=== PATIENT | female | born 1995 | race African-American/Black ===

== ENCOUNTER 2017-01-13 07:48 | Inpatient (IN) | payer OTHER ==
[~2017-01-13] VITALS: Ht 157.5 cm; Wt 74.4 kg
[2017-01-13] MEDS ORDERED: AMPICILLIN 2 GM in IV NORMAL SALINE 100ML 100 ML IV ONE (09:00)
[2017-01-13] MEDS ORDERED: LIDOCAINE 1% PF 30 ML VIAL. INJ PRN (09:00)
[2017-01-13] MEDS ORDERED: OXYTOCIN 30 UNIT/500 ML PREMIX 500 ML IV PRN ×2 (09:00→18:00)
[2017-01-13] MEDS ORDERED: 0.9 % SODIUM CHLORIDE 10 ML DISP.SYRIN. IV PRN ×2 (09:00→18:00)
[2017-01-13] MEDS ORDERED: IBUPROFEN 800 MG TABLET. PO PRN (09:00)
[2017-01-13] MEDS: IV RINGERS,LACTATED 1000ML 1,000 ML IV SCH ×2 (09:37→14:23)
[2017-01-13 10:12] LABS: BASO % 0 % (0-3); EOS % 0 % (0-3); HEMATOCRIT 31.1 % (36.0-47.0); HEMOGLOBIN 10.2 g/dL (12.0-15.5); LYMPH # 2.3 x10^3/uL (1.0-4.8); LYMPH % 14 % (24-48); MEAN CORPUSCULAR HEMOGLOBIN 27 pg (25-35); MEAN CORPUSCULAR HGB CONC 33 g/dL (31-37); MEAN CORPUSCULAR VOLUME 83 fL (79-100); MONO % 6 % (0-9); NEUT % 81 % (31-73); PLATELET COUNT 280 x10^3/uL (140-400); RED BLOOD COUNT 3.77 x10^6/uL (3.50-5.40); RED CELL DISTRIBUTION WIDTH 14.5 % (11.5-14.5); WHITE BLOOD COUNT 16.8 x10^3/uL (4.0-11.0)
[2017-01-13] MEDS: FENTANYL PF 100 MCG/2 ML VIAL. IV PRN ×2 (10:57→12:43)
[2017-01-13 11:44] LABS: PLT ESTIMATE ADEQUATE (ADEQUATE)
[2017-01-13] MEDS ORDERED: AMPICILLIN 1 GM in IV NORMAL SALINE 50ML 50 ML IV SCH (13:00)
--- NOTE | 2017-01-13 13:47 | PDOC1 ---
OB - History Hx of Present Care: Good Care Ultrasounds: Normal mid trimester US Obstetrical Complications: None Medical Complications: None Past Family/Social History * Past Medical, Surgical, Family and Obstetric Histories reviewed from chart. Blood Type: B+ Rubella: Immune RPR/VDRL: Negative GBS Status: Positive HBsAG: Negative OB - Chief Complaint & HPI Date of Admission: Date of Admission: Jan 13, 2017 at 07:48 Chief Complaint/History : 2 Para: 1 EDC: Jan 14, 2017 Reason for admission: active labor Admission Nurse Assessment Rev: Yes Problems: OB - Admission Exam Physical Exam Vitals: VS - Last 72 Hours, by Label Date Time Temp Pulse Resp B/P Pulse Ox O2 Delivery O2 Flow Rate FiO2 01/13/17 12:43 22 01/13/17 11:32 20 Room Air 01/13/17 10:57 20 Room Air HEENT: Normal, Nasal Mucosa Normal, Oropharynx Normal, Moist Membranes, Fontanelles Normal Lungs: Clear, Equal Abdomen: Gravid Extremities: Normal Pulses, No tenderness or swelling Reflexes: Normal Cervical Dilatation: 7cm Effacement: 100% Station: -2 Membranes: Intact Amniotic Fluid: Clear Heart Rate: Normal Accelerations: Accelerations Present Short Term Variability: Present Contractions on Admission: < 5 Minutes Apart Intensity: Moderate (Term labor, AROM - clear fluid) BRANDIN KLEIN MD Jan 13, 2017 13:47
[2017-01-13] MEDS ORDERED: LIDOCAINE 2% PF Vial for OR 5 ML VIAL. ONE (14:25)
[2017-01-13] MEDS ORDERED: L&D EPIDURAL CASSETTE 100 ML EP ONE (15:17)
--- NOTE | 2017-01-13 17:47 | PDOC ---
VAGINAL DELIVERY DATE DATE: 01/13/17 TIME: 17:45 : 2 Para: 2 EGA: 39 VAGINAL DELIVERY: VTX VACCUM ASSISTED: No PLACENTA: Spontaneous 8/9 SEX: Female WEIGHT Weight [ 3725 gm] Nuchal Cord: No Amniotic Fluid: Clear PAIN: Epidural EPISIOTOMY: No EXTENSION: No EBL 300 ml COMPLICATIONS none CONDITION pt. stable Signs of Intrauterine Infectio: None Shoulder Dystocia: No Problems: HUY ELLIS Jr, MD Jan 13, 2017 17:47
[2017-01-13] MEDS ORDERED: SIMETHICONE 80 MG TAB.CHEW PO PRN (18:00)
[2017-01-13] MEDS ORDERED: MAGNESIUM HYDROXIDE 2,400 MG/30 ML ORAL.SUSP. PO PRN (18:00)
[2017-01-13] MEDS ORDERED: DOCUSATE SODIUM 100 MG CAPSULE PO PRN (18:00)
[2017-01-13] MEDS ORDERED: MMR per PROTOCOL. MC PRN (18:00)
[2017-01-13] MEDS ORDERED: DIPHENHYDRAMINE HCL 25 MG CAPSULE PO PRN (18:00)
[2017-01-13] MEDS ORDERED: OXYCODONE/APAP 5/325 TABLET. PO PRN (18:00)
[2017-01-13] MEDS ORDERED: ZOLPIDEM 5 MG TABLET. PO PRN (18:00)
[2017-01-13] MEDS ORDERED: MAG HYDROX/ALUMINUM HYDROX/SMC 30 ML ORAL.SUSP PO PRN (18:00)
[2017-01-13] MEDS ORDERED: BENZOCAINE 20% TOPICAL AEROSOL SPRAY 57GM CAN. TP PRN (18:00)
[2017-01-13] MEDS ORDERED: PHENYLEPH/MINERAL OIL/PETROLAT RECTAL OINTMENT 28GM TUBE. RC PRN (18:00)
[2017-01-13] MEDS ORDERED: ACETAMINOPHEN 325 MG TABLET. PO PRN (18:00)
[2017-01-13] MEDS ORDERED: HYDROCORTISONE 1% TOPICAL OINTMENT 30GM TUBE. TP PRN (18:00)
[2017-01-13 20:05] VITALS: BP 114/67
[2017-01-13 21:05] VITALS: BP 118/79
[2017-01-13] MEDS: IBUPROFEN 800 MG TABLET. PO PRN (21:51)
[2017-01-14 01:00] VITALS: BP 113/64
[2017-01-14 05:13] LABS: BASO # 0.1 x10^3/uL (0.0-0.2); BASO % 0 % (0-3); EOS % 0 % (0-3); HEMATOCRIT 27.9 % (36.0-47.0); LYMPH # 3.2 x10^3/uL (1.0-4.8); LYMPH % 14 % (24-48); MEAN CORPUSCULAR HEMOGLOBIN 27 pg (25-35); MEAN CORPUSCULAR HGB CONC 32 g/dL (31-37); MEAN CORPUSCULAR VOLUME 85 fL (79-100); MONO % 8 % (0-9); NEUT % 78 % (31-73); PLATELET COUNT 249 x10^3/uL (140-400); RED CELL DISTRIBUTION WIDTH 14.6 % (11.5-14.5); WHITE BLOOD COUNT 23.3 x10^3/uL (4.0-11.0)
[2017-01-14 05:20] VITALS: BP 95/47
[2017-01-14] MEDS ORDERED: INFLUENZA VAX SCREEN BY RX. MC PRN (08:00)
[2017-01-14] MEDS ORDERED: FLU VACC QUAD 2016-17 (36MOS+)/PF 0.5 ML SYRINGE. VAX IM ONE (08:15)
[2017-01-14] MEDS: IBUPROFEN 800 MG TABLET. PO PRN (09:18)
[2017-01-14] MEDS: FERROUS SULFATE 325 MG TABLET PO SCH ×2 (09:18→18:22)
[2017-01-14 10:58] VITALS: BP 99/63
--- NOTE | 2017-01-14 12:44 | PDOC ---
OB Progress Note Date of Service 01/14/17 Time of Evaluation 1235 Notes Pt. feeling well. Pain controlled. Breast feeding. Lochia minimal. Lab Laboratory Tests Test 01/13/17 09:45 01/14/17 04:45 White Blood Count 16.8x10^3/uL (4.0-11.0) 23.3x10^3/uL (4.0-11.0) Red Blood Count 3.77x10^6/uL (3.50-5.40) 3.30x10^6/uL (3.50-5.40) Hemoglobin 10.2g/dL (12.0-15.5) 9.0g/dL (12.0-15.5) Hematocrit 31.1% (36.0-47.0) 27.9% (36.0-47.0) Mean Corpuscular Volume 83fL (79-100) 85fL (79-100) Mean Corpuscular Hemoglobin 27pg (25-35) 27pg (25-35) Mean Corpuscular Hemoglobin Concent 33g/dL (31-37) 32g/dL (31-37) Red Cell Distribution Width 14.5% (11.5-14.5) 14.6% (11.5-14.5) Platelet Count 280x10^3/uL (140-400) 249x10^3/uL (140-400) Neutrophils (%) (Auto) 81% (31-73) 78% (31-73) Lymphocytes (%) (Auto) 14% (24-48) 14% (24-48) Monocytes (%) (Auto) 6% (0-9) 8% (0-9) Eosinophils (%) (Auto) 0% (0-3) 0% (0-3) Basophils (%) (Auto) 0% (0-3) 0% (0-3) Neutrophils # (Auto) 13.6x10^3uL (1.8-7.7) 18.1x10^3uL (1.8-7.7) Lymphocytes # (Auto) 2.3x10^3/uL (1.0-4.8) 3.2x10^3/uL (1.0-4.8) Monocytes # (Auto) 0.9x10^3/uL (0.0-1.1) 1.9x10^3/uL (0.0-1.1) Eosinophils # (Auto) 0.0x10^3/uL (0.0-0.7) 0.1x10^3/uL (0.0-0.7) Basophils # (Auto) 0.0x10^3/uL (0.0-0.2) 0.1x10^3/uL (0.0-0.2) Segmented Neutrophils % 90% (35-66) Band Neutrophils % 1% (0-9) Lymphocytes % 5% (24-48) Monocytes % 4% (0-10) Platelet Estimate Adequate (ADEQUATE) RPR Titer Additional Testing Non reactive (Non Reactive) Laboratory Tests Test 01/14/17 04:45 White Blood Count 23.3x10^3/uL (4.0-11.0) Red Blood Count 3.30x10^6/uL (3.50-5.40) Hemoglobin 9.0g/dL (12.0-15.5) Hematocrit 27.9% (36.0-47.0) Mean Corpuscular Volume 85fL (79-100) Mean Corpuscular Hemoglobin 27pg (25-35) Mean Corpuscular Hemoglobin Concent 32g/dL (31-37) Red Cell Distribution Width 14.6% (11.5-14.5) Platelet Count 249x10^3/uL (140-400) Neutrophils (%) (Auto) 78% (31-73) Lymphocytes (%) (Auto) 14% (24-48) Monocytes (%) (Auto) 8% (0-9) Eosinophils (%) (Auto) 0% (0-3) Basophils (%) (Auto) 0% (0-3) Neutrophils # (Auto) 18.1x10^3uL (1.8-7.7) Lymphocytes # (Auto) 3.2x10^3/uL (1.0-4.8) Monocytes # (Auto) 1.9x10^3/uL (0.0-1.1) Eosinophils # (Auto) 0.1x10^3/uL (0.0-0.7) Basophils # (Auto) 0.1x10^3/uL (0.0-0.2) Medications Current Medications Sodium Chloride 3 ml 3 ml QSHIFT PRN IV AFTER MEDS AND BLOOD DRAWS; Start 01/13 at 09:00 Lactated Ringer's (Iv Lactated Ringers) 1,000 ml @ 125 mls/hr Q8H IV Last administered on 01/13/17 14:23; Start 01/13/17 at 08:54 Fentanyl Citrate (Fentanyl 2ml Vial) 100 mcg PRN Q1HR PRN IV Severe pain Last administered on 01/13/17 12:43; Start 01/13/17 at 09:00 Lidocaine HCl 30 ml 30 ml 1X PRN PRN INJ SEE COMMENTS; Start 01/13/17 at 09:00 ; Stop 01/15/17 at 08:59 Ampicillin Sodium 2 gm/Sodium Chloride 100 ml @ 200 mls/hr 1X ONCE IV Last administered on 01/13/17 09:37; Start 01/13/17 at 09:00; Stop 01/13/17 at 09:29 ; Status DC Ampicillin Sodium 1 gm/Sodium Chloride 50 ml @ 100 mls/hr Q4H IV Last administered on 01/13/17 13:01; Start 01/13/17 at 13:00 Oxytocin/Sodium Chloride (Oxytocin Premix Infusion) 500 ml @ 0 mls/hr CONT PRN PRN IV Post delivery bleeding Last administered on 01/13/17 12:43; Start at 09:00 Ibuprofen (Motrin) 800 mg PRN Q6HRS PRN PO PAIN; Start 01/13/17 at 09:00 Lidocaine HCl 5 ml 5 ml STK-MED ONCE .ROUTE Last administered on 01/13/17 15: 19; Start 01/13/17 at 14:25; Stop 01/13/17 at 14:26; Status DC Ropivacaine/ Fentanyl/NS (Dowlzbdl-Bllqo-DA 3 Mcg-0.1%) 100 ml @ As Directed STK-MED ONCE EP Last administered on 01/13/17 15:31; Start 01/13/17 at 15:17; Stop 01/13/17 at 15:18; Status DC Sodium Chloride 10 ml 10 ml QSHIFT PRN IV AFTER MEDS AND BLOOD DRAWS; Start at 18:00 Oxytocin/Sodium Chloride (Oxytocin Premix Infusion) 500 ml @ 62.5 mls/hr CONT PRN IV SEE I/O RECORD; Start 01/13/17 at 18:00; Stop 01/14/17 at 01:59; Status DC Acetaminophen (Tylenol) 650 mg PRN Q6HRS PRN PO MILD PAIN / TEMP; Start at 18:00 Ibuprofen (Motrin) 800 mg PRN Q8HRS PRN PO INFLAMMATION/PAIN PREVENTION Last administered on 01/14/17 09:18; Start 01/13/17 at 18:00 Docusate Sodium (Colace) 100 mg PRN BID PRN PO CONSTIPATION; Start 01/13/17 at 18:00 Magnesium Hydroxide (Milk Of Magnesia) 2,400 mg PRN DAILY PRN PO CONSTIPATION; Start 01/13/17 at 18:00 Al Hydrox/Mg Hydrox/Simethicone (Mylanta Plus Xs) 30 ml PRN Q4HRS PRN PO HEARTBURN / GAS; Start 01/13/17 at 18:00 Simethicone (Gas-X) 80 mg PRN AFTMEALHC PRN PO GAS / BLOATING; Start 01/13/17 at 18:00 Diphenhydramine HCl (Benadryl) 25 mg PRN Q6HRS PRN PO ITCHING; Start 01/13/17 at 18:00 Benzocaine (Americaine) 1 spray PRN QID PRN TP TOPICAL PAIN; Start 01/13/17 at 18:00 Phenyleph/Shark Oil/Min Oil/Petrol (Preparation H) 1 jorden PRN QID PRN RC RECTAL PAIN; Start 01/13/17 at 18:00 Hydrocortisone (Cortaid) 1 jorden PRN QID PRN TP PERINEAL PAIN; Start 01/13/17 at 18:00 Ferrous Sulfate (Feosol) 325 mg BIDWMEALS PO Last administered on 01/14/17 09: 18; Start 01/14/17 at 08:00 Zolpidem Tartrate (Ambien) 5 mg PRN QHS PRN PO INSOMNIA, MAY REPEAT X1; Start 01/13/17 at 18:00 Info (Do NOT chart on this placeholder) 1 ea 1X PRN PRN MC SEE COMMENTS; Start 01/13/17 at 18:00 Info (Do NOT chart on this placeholder) 1 ea 1X PRN PRN MC SEE COMMENTS; Start 01/13/17 at 18:00 Oxycodone/ Acetaminophen (Percocet 5/325) 2 tab PRN Q4HRS PRN PO MODERATE PAIN , SEVERE PAIN; Start 01/13/17 at 18:00 Info (Do NOT chart on this placeholder) 1 each PRN 1X PRN MC SEE COMMENTS; Start 01/14/17 at 08:00; Status UNV Influenza Virus Vaccine Quadrival (Fluarix Quad [id number] Syringe) 0.5 ml ONCE ONCE VAX IM ; Start 01/14/17 at 08:15; Stop 01/14/17 at 08:16; Status DC Exam Abd: soft, non tender, fundus firm Assessment PPD#1 s/p Plan of Care: Continue current Tx, Mgmt HUY ELLIS Jr, MD Jan 14, 2017 12:44
[2017-01-14] MEDS ORDERED: DIPHTH,PERTUSS(ACELL),TET TOX 0.5 ML DISP.SYRIN. VAX IM ONE (15:30)
[2017-01-14 16:29] VITALS: BP 113/72
[2017-01-14 23:35] VITALS: BP 115/68
[2017-01-15] MEDS: IBUPROFEN 800 MG TABLET. PO PRN ×2 (03:19→13:57)
[2017-01-15 05:30] VITALS: BP 100/47
[2017-01-15] MEDS: FERROUS SULFATE 325 MG TABLET PO SCH (10:30)
[2017-01-15 13:30] VITALS: BP 129/71
[2017-01-15 15:45] VITALS: BP 113/52
== END 2017-01-15 15:45 | disposition home or self-care (01) | DRG 775 ==
LOC: OBSVTOIN 07:48 → 3 SO LND 07:48 → 3 NORTH 20:00
PROVIDERS: ADMIT Obstetrics & Gynecology; ATTEND Obstetrics & Gynecology
PROC: 10E0XZZ Delivery of Products of Conception, External Approach (ICD-10-PCS; principal; 2017-01-13)
PROC: 3E0S3CZ (ICD-10-PCS; 2017-01-13)
PROC: 00HU33Z Insertion of Infusion Device into Spinal Canal, Percutaneous Approach (ICD-10-PCS; 2017-01-13)
DX: O80 Encounter for full-term uncomplicated delivery (principal); Z3A.39 39 weeks gestation of pregnancy; Z37.0 Single live birth
CPT/HCPCS: 36415; 85007; 85027; 86593; 86850; 86900; 86901; 90686; 90715; G0378; J0290; J2590; J3010; J7120